=== PATIENT | male | born 1955 | race African-American/Black ===

== ENCOUNTER 2019-07-24 19:06 | Inpatient (IN) ==
[2019-07-24] MEDS ORDERED: hydrALAZINE 20 MG/1 ML VIAL IV PRN (21:12)
[2019-07-24] MEDS ORDERED: SODIUM POLYSTYRENE SULFATE 15 GM/60 ML BOTTLE PO ONE (21:13)
[2019-07-24] MEDS ORDERED: ALBUTEROL 2.5 MG/3 ML NEB RESP TX PRN (21:14)
[2019-07-24 21:25] LABS: ABG Base Excess -3.3 MMOL/L (-2.5-2.5); ABG HCO3 21.5 MMOL/L (20-26); ABG Oxygen Saturation 87.9 % (95-100); ABG PCO2 27.8 MM HG (35-48); ABG PH 7.451 (7.35-7.45); ABG PO2 58.1 MM HG (80-95); ABG TCO2 16.9 MMOL/L (23-27); Allen Test Positive
[2019-07-24] MEDS ORDERED: PROMETHAZINE 25 MG/1 ML VIAL IM PRN (21:54)
[2019-07-24] MEDS ORDERED: ZALEPLON 5 MG CAPSULE PO PRN (21:54)
[2019-07-24] MEDS ORDERED: MORPHINE 4 MG/1 ML VIAL IV PRN (21:54)
[2019-07-24] MEDS ORDERED: guaiFENesin/DM ER 600-30 MG TABLET PO PRN (21:54)
[2019-07-24] MEDS ORDERED: ACETAMINOPHEN 325 MG TABLET PO PRN (21:54)
[2019-07-24] MEDS ORDERED: ONDANSETRON 4 MG/2 ML VIAL IV PRN (21:54)
[2019-07-24 21:56] LABS: Basophils % 0.6 % (0.0-0.8); Eosinophils % 0.2 % (0.00-10.9); Hematocrit 38.4 VOL% (42.0-52.0); Hemoglobin 12.5 GM/DL (14.0-18.0); Immature Granulocytes % 0.2 %; Immature Granulocytes Absolute 0.01 #; Lymphocytes # 1.4 10*3/uL (1.4-4.0); Lymphocytes % 26.4 % (21.2-54.2); Mean Corpuscular HGB Conc 32.6 GM/DL (32-36); Mean Corpuscular Volume 84.4 FL (87-102); Mean Platelet Volume 12.3 FL (9.6-12.0); Monocytes % 8.5 % (1.7-12.7); Neutrophils % 64.1 % (38.7-73.9); Platelet Count 171 T/CUMM (130-400); Red Blood Count 4.55 MC/CUMM (3.8-5.5); Red Cell Distribution Width 15.1 % (9.3-17.3); White Blood Count 5.4 T/CUMM (4-12)
[2019-07-24] MEDS ORDERED: NITROGLYCERIN DRIP 50 MG/250 ML BOTTLE IV PRN (21:57)
[2019-07-24 22:11] LABS: Osmolality,Calculated 289.4 MOS/KG (273-304)
[2019-07-24 22:18] LABS: INR 4.9
[2019-07-24] MEDS: carvediloL 6.25 MG TABLET PO SCH (22:18)
[2019-07-24] MEDS: FUROSEMIDE 40 MG/4 ML VIAL IV SCH (22:21)
[2019-07-24 22:22] LABS: PT Patient Result 52.3 SECS (9.6-12.2); Partial Thromboplastin Time 42.1 SECS (20.8-36.0)
[2019-07-25] MEDS ORDERED: ENOXAPARIN 80 MG/0.8 ML SYRINGE SUBCUT ONE (00:42)
[2019-07-25 05:40] LABS: Basophils % 0.4 % (0.0-0.8); Hematocrit 37.1 VOL% (42.0-52.0); Hemoglobin 12.3 GM/DL (14.0-18.0); Immature Granulocytes % 0.2 %; Immature Granulocytes Absolute 0.01 #; Lymphocytes # 0.9 10*3/uL (1.4-4.0); Lymphocytes % 17.5 % (21.2-54.2); Mean Corpuscular HGB Conc 33.2 GM/DL (32-36); Mean Corpuscular Volume 83.2 FL (87-102); Mean Platelet Volume 12.6 FL (9.6-12.0); Monocytes % 9.5 % (1.7-12.7); Neutrophils % 72.4 % (38.7-73.9); Platelet Count 164 T/CUMM (130-400); Red Blood Count 4.46 MC/CUMM (3.8-5.5); Red Cell Distribution Width 15.1 % (9.3-17.3); White Blood Count 5.3 T/CUMM (4-12)
[2019-07-25 05:51] LABS: INR 4.5
[2019-07-25 05:54] LABS: PT Patient Result 48.7 SECS (9.6-12.2); Partial Thromboplastin Time 49.9 SECS (20.8-36.0)
[2019-07-25 06:58] LABS: Albumin 2.9 G/DL (3.4-5.0); Bilirubin,Total 1.2 MG/DL (0.2-1.0); Calcium 8.9 MG/DL (8.5-10.1); Osmolality,Calculated 295.3 MOS/KG (273-304); Total Protein 6.5 G/DL (6.4-8.3)
[2019-07-25] MEDS: ASPIRIN EC 325 MG TABLET PO SCH (08:22)
[2019-07-25] MEDS: PANTOPRAZOLE 40 MG TABLET PO SCH (08:22)
[2019-07-25] MEDS: carvediloL 6.25 MG TABLET PO SCH ×2 (08:23→19:03)
[2019-07-25] MEDS: FUROSEMIDE 40 MG/4 ML VIAL IV SCH ×2 (09:26→20:30)
[2019-07-25] MEDS ORDERED: WARFARIN 3 MG TABLET PO SCH ×2 (14:45→18:00)
[2019-07-25] MEDS: lisinopriL 20 MG TABLET PO SCH (15:11)
[2019-07-25] MEDS: DEXTROSE 10% 1,000 ML IV SCH (15:18)
[2019-07-26 04:32] LABS: Basophils % 0.2 % (0.0-0.8); Eosinophils # 0.1 10*3/uL (0.0-0.87); Eosinophils % 1.3 % (0.00-10.9); Hematocrit 33.3 VOL% (42.0-52.0); Hemoglobin 11.2 GM/DL (14.0-18.0); Immature Granulocytes % 0.2 %; Immature Granulocytes Absolute 0.01 #; Lymphocytes # 1.3 10*3/uL (1.4-4.0); Lymphocytes % 24.6 % (21.2-54.2); Mean Corpuscular HGB Conc 33.6 GM/DL (32-36); Mean Corpuscular Volume 82.8 FL (87-102); Mean Platelet Volume 11.8 FL (9.6-12.0); Monocytes % 14.9 % (1.7-12.7); Neutrophils % 58.8 % (38.7-73.9); Platelet Count 138 T/CUMM (130-400); Red Blood Count 4.02 MC/CUMM (3.8-5.5); Red Cell Distribution Width 14.9 % (9.3-17.3); White Blood Count 5.4 T/CUMM (4-12)
[2019-07-26 04:38] LABS: INR 3.3
[2019-07-26 04:44] LABS: PT Patient Result 35.2 SECS (9.6-12.2)
[2019-07-26 04:58] LABS: Calcium 8.1 MG/DL (8.5-10.1); Osmolality,Calculated 290.4 MOS/KG (273-304)
[2019-07-26] MEDS ORDERED: POTASSIUM CHLORIDE 20 MEQ TABLET PO ONE (05:31)
[2019-07-26] MEDS: POTASSIUM CHLORIDE RIDER 10 MEQ in PREMIX 1 EACH IV PRN ×2 (06:08→08:10)
[2019-07-26] MEDS: DEXTROSE 10% 1,000 ML IV SCH (07:16)
[2019-07-26] MEDS ORDERED: SIMVASTATIN 10 MG TABLET PO SCH (09:00)
[2019-07-26] MEDS ORDERED: MAGNESIUM SULF RIDER 2 GM in PREMIX 1 EACH IV ONE (09:00)
[2019-07-26] MEDS: ASPIRIN EC 325 MG TABLET PO SCH (09:29)
[2019-07-26] MEDS: PANTOPRAZOLE 40 MG TABLET PO SCH (09:30)
[2019-07-26] MEDS: POTASSIUM CHLORIDE 20 MEQ TABLET PO SCH ×4 (09:30→20:41)
[2019-07-26] MEDS: FUROSEMIDE 40 MG/4 ML VIAL IV SCH ×2 (09:32→20:41)
[2019-07-26] MEDS: carvediloL 6.25 MG TABLET PO SCH ×2 (10:53→17:30)
[2019-07-27 06:24] LABS: Calcium 8.4 MG/DL (8.5-10.1); Osmolality,Calculated 286.7 MOS/KG (273-304)
[2019-07-27] MEDS: carvediloL 6.25 MG TABLET PO SCH ×2 (08:10→17:11)
[2019-07-27] MEDS: PANTOPRAZOLE 40 MG TABLET PO SCH (08:10)
[2019-07-27] MEDS: ASPIRIN EC 325 MG TABLET PO SCH (08:10)
[2019-07-27] MEDS: FUROSEMIDE 80 MG TABLET PO SCH (09:27)
[2019-07-27] MEDS: POTASSIUM CHLORIDE 20 MEQ TABLET PO PRN ×3 (09:27→13:24)
[2019-07-27 10:01] LABS: INR 1.9
[2019-07-27] MEDS ORDERED: ceFAZolin 1,000 MG in SYRINGE 1 EACH IV ONE (12:38)
[2019-07-27] MEDS ORDERED: ceFAZolin 1,000 MG VIAL IRRIG ONE (12:38)
[2019-07-27] MEDS: SIMVASTATIN 10 MG TABLET PO SCH (20:39)
[2019-07-28 05:45] LABS: Basophils % 0.3 % (0.0-0.8); Eosinophils # 0.1 10*3/uL (0.0-0.87); Eosinophils % 1.4 % (0.00-10.9); Hematocrit 32.5 VOL% (42.0-52.0); Hemoglobin 10.8 GM/DL (14.0-18.0); Immature Granulocytes % 0.2 %; Immature Granulocytes Absolute 0.01 #; Lymphocytes # 1.6 10*3/uL (1.4-4.0); Mean Corpuscular HGB Conc 33.2 GM/DL (32-36); Mean Platelet Volume 11.8 FL (9.6-12.0); Monocytes % 11.5 % (1.7-12.7); Neutrophils % 59.6 % (38.7-73.9); Platelet Count 150 T/CUMM (130-400); Red Blood Count 3.87 MC/CUMM (3.8-5.5); Red Cell Distribution Width 15.1 % (9.3-17.3); White Blood Count 5.7 T/CUMM (4-12)
[2019-07-28 05:47] LABS: INR 1.4; PT Patient Result 15.3 SECS (9.6-12.2)
[2019-07-28 06:05] LABS: Calcium 8.5 MG/DL (8.5-10.1); Osmolality,Calculated 284.7 MOS/KG (273-304)
[2019-07-28] MEDS: carvediloL 6.25 MG TABLET PO SCH ×2 (09:30→16:52)
[2019-07-28] MEDS: ASPIRIN EC 325 MG TABLET PO SCH (09:31)
[2019-07-28] MEDS ORDERED: ceFAZolin 1,000 MG VIAL ONE (10:32)
[2019-07-28] MEDS ORDERED: LIDOCAINE 1% 20 ML VIAL ONE (10:32)
[2019-07-28] MEDS ORDERED: HEPARIN/NACL 0.9% 2 UNITS/ML 500 ML IV ONE (10:32)
[2019-07-28] MEDS ORDERED: TISSUE ADHESIVE 1 EACH APPLICATOR TOP ONE (10:32)
[2019-07-28] MEDS ORDERED: MIDAZOLAM 2 MG/2 ML VIAL ONE (13:57)
[2019-07-28] MEDS ORDERED: fentaNYL 100 MCG/2 ML VIAL ONE (13:57)
[2019-07-28] MEDS ORDERED: propofoL 200 MG/20 ML VIAL IV ONE (13:57)
[2019-07-28] MEDS ORDERED: LIDOCAINE 2% 5 ML VIAL ONE (13:57)
[2019-07-28] MEDS ORDERED: KETAMINE 500 MG/10 ML VIAL ONE (13:57)
[2019-07-28] MEDS ORDERED: ETOMIDATE 40 MG/20 ML VIAL IV ONE (13:58)
[2019-07-28] MEDS ORDERED: SODIUM CHLORIDE 0.9% 100 ML IV ONE (13:58)
[2019-07-28] MEDS: FUROSEMIDE 80 MG TABLET PO SCH (14:44)
[2019-07-28] MEDS: PANTOPRAZOLE 40 MG TABLET PO SCH (14:45)
[2019-07-28] MEDS ORDERED: WARFARIN 3 MG TABLET PO SCH ×2 (18:00→21:00)
[2019-07-28] MEDS: ceFAZolin 1,000 MG in SYRINGE 1 EACH IV SCH (22:07)
[2019-07-28] MEDS: SIMVASTATIN 10 MG TABLET PO SCH (22:07)
[2019-07-29] MEDS: ceFAZolin 1,000 MG in SYRINGE 1 EACH IV SCH (05:48)
[2019-07-29 06:00] LABS: Basophils % 0.2 % (0.0-0.8); Eosinophils # 0.1 10*3/uL (0.0-0.87); Eosinophils % 1.7 % (0.00-10.9); Hematocrit 33.1 VOL% (42.0-52.0); Hemoglobin 10.9 GM/DL (14.0-18.0); Immature Granulocytes % 0.2 %; Immature Granulocytes Absolute 0.01 #; Lymphocytes # 1.3 10*3/uL (1.4-4.0); Lymphocytes % 22.4 % (21.2-54.2); Mean Corpuscular HGB Conc 32.9 GM/DL (32-36); Mean Corpuscular Volume 84.7 FL (87-102); Mean Platelet Volume 12.5 FL (9.6-12.0); Monocytes % 12.1 % (1.7-12.7); Neutrophils % 63.4 % (38.7-73.9); Platelet Count 156 T/CUMM (130-400); Red Blood Count 3.91 MC/CUMM (3.8-5.5); Red Cell Distribution Width 15.2 % (9.3-17.3)
[2019-07-29 06:21] LABS: Calcium 8.5 MG/DL (8.5-10.1); Osmolality,Calculated 290.3 MOS/KG (273-304)
[2019-07-29 06:22] LABS: Calcium 8.4 MG/DL (8.5-10.1); Osmolality,Calculated 292.1 MOS/KG (273-304)
[2019-07-29] MEDS ORDERED: carvediloL 12.5 MG TABLET PO SCH (08:00)
[2019-07-29] MEDS ORDERED: cephALEXin 500 MG CAPSULE PO SCH (09:00)
[2019-07-29] MEDS ORDERED: ASPIRIN EC 81 MG TABLET PO SCH (09:00)
[2019-07-29] MEDS: FUROSEMIDE 80 MG TABLET PO SCH (09:37)
[2019-07-29] MEDS: lisinopriL 20 MG TABLET PO SCH (09:37)
[2019-07-29] MEDS: PANTOPRAZOLE 40 MG TABLET PO SCH (09:37)
[2019-07-29 13:26] VITALS: BP 121/68
== END 2019-07-29 15:37 | disposition home health service (06) | DRG 226 ==
LOC: SUATTDRO 20:51 → N.ICU 20:51 → N.5E 07-26 12:31 → N.TELES 07-28 11:47
PROVIDERS: ADMIT Internal Medicine; ATTEND Family Medicine

== ENCOUNTER 2020-10-25 16:23 | Observation (INO) ==
[2020-10-25] MEDS ORDERED: cloNIDine 0.1 MG TABLET PO STA (16:41)
[2020-10-25 18:03] LABS: Basophils % 0.3 % (0.0-0.8); Eosinophils # 0.1 10*3/uL (0.0-0.87); Hematocrit 35.5 VOL% (42.0-52.0); Hemoglobin 10.7 GM/DL (14.0-18.0); Immature Granulocytes % 0.3 %; Immature Granulocytes Absolute 0.02 #; Lymphocytes # 0.9 10*3/uL (1.4-4.0); Lymphocytes % 14.9 % (21.2-54.2); Mean Corpuscular HGB Conc 30.1 GM/DL (32-36); Mean Corpuscular Volume 71.3 FL (87-102); Monocytes % 10.1 % (1.7-12.7); Neutrophils % 73.4 % (38.7-73.9); Platelet Count 202 T/CUMM (130-400); Red Blood Count 4.98 MC/CUMM (3.8-5.5); Red Cell Distribution Width 26.2 % (9.3-17.3); White Blood Count 6.3 T/CUMM (4-12)
[2020-10-25 18:18] LABS: Albumin 2.6 G/DL (3.4-5.0); Bilirubin,Total 0.5 MG/DL (0.2-1.0); Calcium 8.2 MG/DL (8.5-10.1); Osmolality,Calculated 288.3 MOS/KG (273-304); Potassium 3.3 MMOL/L (3.5-5.1); Total Protein 5.6 G/DL (6.4-8.2)
[2020-10-25 18:26] LABS: INR 1.8; PT Patient Result 18.5 SECS (9.8-11.9)
[2020-10-25] MEDS ORDERED: FUROSEMIDE 40 MG/4 ML VIAL IV STA (18:29)
[2020-10-25] MEDS ORDERED: DEXTROSE 50% 25 GM/50 ML VIAL IV PRN (19:10)
[2020-10-25] MEDS ORDERED: GLUCAGON 1 MG VIAL IM PRN (19:10)
[2020-10-25] MEDS ORDERED: ONDANSETRON 4 MG/2 ML VIAL IV PRN (19:10)
[2020-10-25] MEDS ORDERED: ACETAMINOPHEN 325 MG TABLET PO PRN (19:10)
[2020-10-25] MEDS ORDERED: guaiFENesin/DM ER 600-30 MG TABLET PO PRN (19:10)
[2020-10-25] MEDS ORDERED: DOCUSATE SODIUM 100 MG CAPSULE PO PRN (19:10)
[2020-10-25] MEDS ORDERED: cloNIDine 0.1 MG TABLET PO PRN (19:31)
[2020-10-25] MEDS: ENOXAPARIN 30 MG/0.3 ML SYRINGE SUBCUT SCH (21:46)
[2020-10-25] MEDS: INSULIN REGULAR 100 UNIT/ML SUBCUT SCH (21:49)
[2020-10-26] MEDS: FUROSEMIDE 40 MG/4 ML VIAL IV SCH ×4 (01:01→19:58)
[2020-10-26 05:25] LABS: Basophils % 0.2 % (0.0-0.8); Eosinophils # 0.1 10*3/uL (0.0-0.87); Eosinophils % 0.9 % (0.00-10.9); Hematocrit 34.6 VOL% (42.0-52.0); Hemoglobin 10.6 GM/DL (14.0-18.0); Immature Granulocytes % 0.3 %; Immature Granulocytes Absolute 0.02 #; Lymphocytes # 1.1 10*3/uL (1.4-4.0); Lymphocytes % 18.8 % (21.2-54.2); Mean Corpuscular HGB Conc 30.6 GM/DL (32-36); Monocytes % 12.2 % (1.7-12.7); Neutrophils % 67.6 % (38.7-73.9); Platelet Count 196 T/CUMM (130-400); Red Blood Count 4.94 MC/CUMM (3.8-5.5); Red Cell Distribution Width 25.9 % (9.3-17.3); White Blood Count 5.7 T/CUMM (4-12)
[2020-10-26 05:34] LABS: INR 1.7; PT Patient Result 17.7 SECS (9.8-11.9); Partial Thromboplastin Time 35.9 SECS (23.9-33.8)
[2020-10-26 05:45] LABS: Burr Cells Slight; Hypochromasia Slight; Ovalocytes Slight; Platelet Estimate Adequate
[2020-10-26 06:05] LABS: Calcium 8.3 MG/DL (8.5-10.1); Osmolality,Calculated 287.4 MOS/KG (273-304); Potassium 3.3 MMOL/L (3.5-5.1); Risk Ratio 3.02; Thyroid Stimulating Hormone 2.77 uIU/ml (0.358-3.74)
[2020-10-26] MEDS ORDERED: carvediloL 12.5 MG TABLET PO SCH (08:00)
[2020-10-26] MEDS ORDERED: POTASSIUM CHLORIDE 20 MEQ TABLET PO ONE (08:11)
[2020-10-26] MEDS: INSULIN REGULAR 100 UNIT/ML SUBCUT SCH ×4 (08:39→20:42)
[2020-10-26] MEDS: hydrALAZINE 25 MG TABLET PO SCH ×2 (08:40→21:01)
[2020-10-26] MEDS: PANTOPRAZOLE 40 MG TABLET PO SCH (08:41)
[2020-10-26] MEDS: SIMVASTATIN 10 MG TABLET PO SCH (08:41)
[2020-10-26] MEDS: ASPIRIN EC 81 MG TABLET PO SCH (08:41)
[2020-10-26] MEDS: POTASSIUM CHLORIDE 20 MEQ TABLET PO SCH (08:42)
[2020-10-26] MEDS ORDERED: carvediloL 12.5 MG TABLET PO ONE (13:55)
[2020-10-26] MEDS: ISOSORBIDE MONONITRATE 30 MG TABLET PO SCH (15:13)
[2020-10-26] MEDS: SPIRONOLACTONE 25 MG TABLET PO SCH (15:14)
[2020-10-26] MEDS: WARFARIN 3 MG TABLET PO SCH (18:31)
[2020-10-26] MEDS: ENOXAPARIN 30 MG/0.3 ML SYRINGE SUBCUT SCH (21:00)
[2020-10-26] MEDS: carvediloL 25 MG TABLET PO SCH (21:01)
[2020-10-26] MEDS: ASCORBIC ACID 500 MG TABLET PO SCH (21:01)
[2020-10-26] MEDS: ZALEPLON 5 MG CAPSULE PO PRN (21:05)
[2020-10-27] MEDS: FUROSEMIDE 40 MG/4 ML VIAL IV SCH ×4 (01:32→18:28)
[2020-10-27 05:39] LABS: Basophils % 0.3 % (0.0-0.8); Eosinophils # 0.1 10*3/uL (0.0-0.87); Eosinophils % 1.3 % (0.00-10.9); Hematocrit 35.4 VOL% (42.0-52.0); Hemoglobin 10.8 GM/DL (14.0-18.0); Immature Granulocytes % 0.4 %; Immature Granulocytes Absolute 0.03 #; Lymphocytes # 1.2 10*3/uL (1.4-4.0); Lymphocytes % 17.4 % (21.2-54.2); Mean Corpuscular HGB Conc 30.5 GM/DL (32-36); Mean Corpuscular Volume 70.9 FL (87-102); Monocytes % 10.3 % (1.7-12.7); Neutrophils % 70.3 % (38.7-73.9); Platelet Count 199 T/CUMM (130-400); Red Blood Count 4.99 MC/CUMM (3.8-5.5); Red Cell Distribution Width 25.9 % (9.3-17.3); White Blood Count 6.9 T/CUMM (4-12)
[2020-10-27 06:05] LABS: Acanthocytes Few; Hypochromasia 1+; Microcytosis 1+; Target Cells Slight
[2020-10-27 06:06] LABS: Ovalocytes Slight; Poikilocytosis 1+
[2020-10-27 06:07] LABS: Platelet Estimate Adequate; Schistocytes Slight
[2020-10-27 06:24] LABS: Calcium 8.3 MG/DL (8.5-10.1); Osmolality,Calculated 291.1 MOS/KG (273-304); Potassium 3.6 MMOL/L (3.5-5.1)
[2020-10-27] MEDS: carvediloL 25 MG TABLET PO SCH ×2 (08:24→21:12)
[2020-10-27] MEDS: ASPIRIN EC 81 MG TABLET PO SCH (08:24)
[2020-10-27] MEDS: ASCORBIC ACID 500 MG TABLET PO SCH ×2 (08:24→21:12)
[2020-10-27] MEDS: POTASSIUM CHLORIDE 20 MEQ TABLET PO SCH (08:24)
[2020-10-27] MEDS: ISOSORBIDE MONONITRATE 30 MG TABLET PO SCH (08:25)
[2020-10-27] MEDS: PANTOPRAZOLE 40 MG TABLET PO SCH (08:25)
[2020-10-27] MEDS: SPIRONOLACTONE 25 MG TABLET PO SCH (08:25)
[2020-10-27] MEDS: hydrALAZINE 25 MG TABLET PO SCH (08:25)
[2020-10-27] MEDS: SIMVASTATIN 10 MG TABLET PO SCH (08:25)
[2020-10-27] MEDS ORDERED: POTASSIUM CHLORIDE 20 MEQ TABLET PO ONE (08:42)
[2020-10-27] MEDS ORDERED: MAGNESIUM SULF RIDER 4 GM in PREMIX 1 EACH IV ONE (08:42)
[2020-10-27] MEDS: INSULIN REGULAR 100 UNIT/ML SUBCUT SCH ×4 (09:06→21:12)
[2020-10-27] MEDS: WARFARIN 3 MG TABLET PO SCH (18:29)
[2020-10-27] MEDS: ENOXAPARIN 30 MG/0.3 ML SYRINGE SUBCUT SCH (21:12)
[2020-10-27] MEDS: ZALEPLON 5 MG CAPSULE PO PRN (21:39)
[2020-10-28] MEDS: FUROSEMIDE 40 MG/4 ML VIAL IV SCH ×2 (00:03→08:16)
[2020-10-28 06:01] LABS: Basophils % 0.6 % (0.0-0.8); Eosinophils # 0.1 10*3/uL (0.0-0.87); Eosinophils % 1.1 % (0.00-10.9); Hematocrit 32.3 VOL% (42.0-52.0); Hemoglobin 10.1 GM/DL (14.0-18.0); Immature Granulocytes % 0.4 %; Immature Granulocytes Absolute 0.02 #; Lymphocytes # 0.8 10*3/uL (1.4-4.0); Lymphocytes % 15.4 % (21.2-54.2); Mean Corpuscular HGB Conc 31.3 GM/DL (32-36); Mean Corpuscular Volume 69.2 FL (87-102); Monocytes % 11.5 % (1.7-12.7); Red Blood Count 4.67 MC/CUMM (3.8-5.5); Red Cell Distribution Width 25.7 % (9.3-17.3); White Blood Count 5.4 T/CUMM (4-12)
[2020-10-28 06:04] LABS: Platelet Count 157 T/CUMM (130-400)
[2020-10-28 06:09] LABS: INR 1.4; PT Patient Result 15.1 SECS (9.8-11.9)
[2020-10-28 06:15] LABS: Calcium 8.3 MG/DL (8.5-10.1); Osmolality,Calculated 289.3 MOS/KG (273-304); Potassium 3.5 MMOL/L (3.5-5.1)
[2020-10-28 06:21] LABS: Hypochromasia 1+; Microcytosis 1+
[2020-10-28 06:22] LABS: Burr Cells Slight; Ovalocytes Slight; Platelet Estimate Adequate
[2020-10-28] MEDS: ASPIRIN EC 81 MG TABLET PO SCH (08:18)
[2020-10-28] MEDS: carvediloL 25 MG TABLET PO SCH (08:18)
[2020-10-28] MEDS: SPIRONOLACTONE 25 MG TABLET PO SCH (08:18)
[2020-10-28] MEDS: ISOSORBIDE MONONITRATE 30 MG TABLET PO SCH (08:18)
[2020-10-28] MEDS: ASCORBIC ACID 500 MG TABLET PO SCH (08:18)
[2020-10-28] MEDS: PANTOPRAZOLE 40 MG TABLET PO SCH (08:19)
[2020-10-28] MEDS: SIMVASTATIN 10 MG TABLET PO SCH (08:19)
[2020-10-28] MEDS: INSULIN REGULAR 100 UNIT/ML SUBCUT SCH ×2 (08:19→11:40)
[2020-10-28] MEDS: POTASSIUM CHLORIDE 20 MEQ TABLET PO SCH (08:21)
[2020-10-28 12:00] VITALS: BP 132/84
[2020-10-28] MEDS ORDERED: FUROSEMIDE 80 MG TABLET PO SCH (16:00)
== END 2020-10-28 13:40 | disposition hospice, home (50) ==
LOC: EDUNIT# → EDBD → N.EDINP 16:23 → N.ED 16:23 → N.EDINP 21:19 → N.TELEN 21:32
PROVIDERS: ADMIT Family Medicine; ATTEND Family Medicine